=== PATIENT | female | born 1975 | race Caucasian/White ===

== ENCOUNTER → 2017-08-13 19:12 | Outpatient (CLI) | payer SELFPAY ==
[2017-08-18 11:18] LABS: HPV Reflexed? NOT INDICATED
== END ==
PROVIDERS: Visit Provider Obstetrics & Gynecology
DX: Z12.4 Encounter for screening for malignant neoplasm of cervix (principal)
CPT/HCPCS: 88175; G0145

== ENCOUNTER → 2019-10-20 | Outpatient (CLI) | payer SELFPAY ==
[2019-10-26 05:12] LABS: HPV Reflexed? NOT INDICATED
== END | disposition home or self-care (01) ==
LOC: LABSPEC 15:53
PROVIDERS: Referring Provider Obstetrics & Gynecology; Visit Provider Obstetrics & Gynecology
DX: Z12.4 Encounter for screening for malignant neoplasm of cervix (principal)
CPT/HCPCS: 88175; G0145

== ENCOUNTER 2021-06-11 17:15 | Outpatient (CLI) | payer SELFPAY ==
--- NOTE | 2021-06-11 | ASPS_PTH ---
PATIENT: GABRIELLA ARRIAZA [facility] U#:[id number] AGE/SX: 45/F ROOM: RE06/11/[address]: Dr. Anup Robertson MD : 1975 BED: DIS: 06/11/2021 SPEC #: [id number] RECD: 06/11/21 17:15 STATUS: MARISOL REElvira #: [id number] GIOVANY: 06/11/21 00:[address]: Anup Robertson DEPT: CYTOLOGY RECD BY: Oliverio Islas ENTERED: 06/12/21 09:49 SP TYPE: ASPIRATION OTHR DR: No Primary Care Phys Tissues: Breast, NOS Procedures: Special Stain Group II Cytology Other HEADER OPERATION: Right breast aspiration PRE-OP DIAGNOSIS: Nipple discharge right breast TISSUE SUBMITTED: Nipple discharge right breast slides x2 DIAGNOSIS CYTOLOGY Nipple discharge (smears): Negative for malignant cells. See comment. AM:thompson 06/13/2021 COMMENT The specimen contains blood and amorphous proteinaceous material. Clinical correlation is suggested. CYTOLOGY STUDY Slides are reviewed. CYTOLOGY GROSS Received are two smears labeled with the patient's name and designated per the requisition as right breast nipple discharge. Submitted for staining. / thompson 06/12/2021 TC:5 CPT: 95240
== END 2021-06-11 23:59 | disposition short-term general hospital (02) ==
PROVIDERS: Visit Provider Obstetrics & Gynecology
DX: N64.52 Nipple discharge (principal)
CPT/HCPCS: 88161; 88313

== ENCOUNTER 2023-02-10 09:42 | Outpatient (CLI) | payer OTHER, SELFPAY | END 2023-02-10 23:59 | disposition home or self-care (01) | LOC: LAB 09:44 | PROVIDERS: PCP Family Medicine; Referring Provider Ophthalmology; Visit Provider Ophthalmology | DX: Z00.00 Encounter for general adult medical examination without abnormal findings (principal) | CPT/HCPCS: 36415 ==